=== PATIENT | female | born 1990 | race African-American/Black ===

== ENCOUNTER 2018-06-30 22:56 | Emergency (ER) | payer OTHER ==
[~2018-06-30] VITALS: Ht 170.2 cm; Wt 79.4 kg
[2018-06-30] MEDS ORDERED: TESSALON PERLE100 M2 ORAL (23:14)
[2018-06-30] MEDS ORDERED: PHENERGAN SUPP25 MG PO (23:14)
[2018-06-30 23:15] VITALS: BP 109/78
--- NOTE | 2018-06-30 23:33 | Emergency Room Report ---
History of Present Illness General Chief Complaint: Flu Like Symptoms Source: Patient Present Illness HPI Patient present with complaints of cough and congestion Low-grade fevers Ongoing for the past 10 days Patient reports that she was seen at [facility] Initially reported that no testing was performed and the patient was diagnosed with viral bronchitis As the symptoms persisted and somewhat worse and she presents to the ER She feels that her cough is somewhat better however has increased nasal congestion Mild sore throat Denies any vomiting or diarrhea denies any rash denies any neck pain or photophobia Allergies: Coded Allergies: No Known Allergies (Unverified , 06/30/18) Patient History Past Medical History: see triage record Pertinent Family History: none Last Menstrual Period: 06/09/2018 Now: No : 4 Para: 0 Reviewed Nursing Documentation: PMH: Agreed; PSxH: Agreed Nursing Documentation-PMH Past Medical History: No Stated History Review of Systems All Other Systems: negative except mentioned in HPI Physical Exam Vital Signs Date Time Temp Pulse Resp B/P (MAP) Pulse Ox O2 Delivery O2 Flow Rate FiO2 06/30/18 23:08 97.9 91 16 109/78 99 Sp02 EP Interpretation: reviewed, normal General Appearance: well appearing, no apparent distress Head: normocephalic, atraumatic Eyes: bilateral eye PERRL, bilateral eye EOMI ENT: hearing grossly normal, TMs + canals normal, uvula midline, pharyngeal erythema - Mild erythema, other - Increased tenderness over the maxillary sinuses Neck: full range of motion, supple, no meningismus, no bony tend Respiratory: lungs clear, normal breath sounds, no rhonchi, no respiratory distress, no retraction, no accessory muscle use Cardiovascular #1: normal peripheral pulses, regular rate, rhythm, no edema, no gallop, no JVD, no murmur Gastrointestinal: normal bowel sounds, non tender, soft, no mass, no organomegaly, non-distended, no guarding, no hernia, no pulsatile mass, no rebound Genitourinary: no CVA tenderness Musculoskeletal: normal inspection Neurologic: oriented x3, responsive, material damage appraiser III-XII nml as tested, motor strength/ tone normal, sensory intact Psychiatric: mood/affect normal Skin: normal color, no rash, warm/dry, palpation normal Lymphatic: normal inspection, no adenopathy Medical Decision Making Diagnostic Impression: Primary Impression: Sinusitis ER Course Patient does report that she had a chest x-ray performed at [facility] which was negative therefore this was not repeated as the patient has clear lung sounds There appears to be symptoms of sinusitis Given the patient's duration of symptoms Given her discomfort and low-grade fevers she is placed on antibiotics Last Vital Signs Date Time Temp Pulse Resp B/P (MAP) Pulse Ox O2 Delivery O2 Flow Rate FiO2 06/30/18 23:08 97.9 91 16 109/78 99 Status: unchanged Disposition: HOME, SELF-CARE Condition: Stable Scripts Amoxicillin/Potassium Clav 875-125* (AUGMENTIN 875-125 TABLET*) 1 Each Tablet 1 TAB ORAL TWICE A DAY, #14 TAB Prov: Dannie Aguilar DO 06/30/18 Additional Instructions: Patient is provided with the discharge instructions notified to follow up with primary doctor in the next 2-3 days otherwise return to the er with any worsening symptoms. Please note that this report is being documented using DRAGON technology. This can lead to erroneous entry secondary to incorrect interpretation by the dictating instrument. Dannie Aguilar DO Jun 30, 2018 23:33
[2018-06-30] MEDS ORDERED: AUGMENTIN 875-1 EAC1 ORAL (23:34)
[2018-06-30 23:50] VITALS: BP 109/78
== END 2018-06-30 23:50 | disposition home or self-care (01) ==
LOC: EMR 23:15
DX: J32.9 Chronic sinusitis, unspecified (principal); R05 Cough
CPT/HCPCS: 99282